=== PATIENT | female | born 1970 | race African-American/Black ===

== ENCOUNTER 2017-03-11 13:06 | Outpatient (CLI) | payer OTHER ==
--- NOTE | 2017-03-11 15:41 | Mammography Report ---
Bilateral diagnostic mammogram with CAD and bilateral targeted breast ultrasound. History: Short-term followup study. Comparison is made to previous left mammogram and bilateral breast ultrasound performed on June 11, 2016. Findings: The breast parenchyma is heterogeneously dense, and the overall pattern is unchanged. No evidence of mammographic mass or distortion is seen. No suspicious calcifications are present. Sonographic evaluation of the left breast demonstrates an ovoid shaped well-circumscribed hypoechoic lesion at the 7:00 position, 4 cm from the nipple. This measures 1.1 x 0.5 cm and is smaller compared to the previous study. Also the internal sonographic features are more uniformly hypoechoic. There is no acoustic shadowing or other suspicious findings. Examination of the right breast demonstrates 3 small cysts in the upper-inner quadrant the largest of which measures 5 mm in diameter. No solid lesions are identified. Impression: Since the previous study, the sonographic lesion at 7:00 in the left breast has decreased in size and demonstrates multiple benign features. There is no mammographic correlate. Multiple right small cysts are noted again without mammographic correlation. BI-RADS code: 3. Recommendation: A 6 month followup left breast ultrasound is recommended.
== END 2017-03-11 13:07 | disposition home or self-care (01) ==
LOC: MAMMO 13:06
PROVIDERS: ATTEND Family Medicine
DX: N60.01 Solitary cyst of right breast (principal); N64.89 Other specified disorders of breast
CPT/HCPCS: 76642; G0204; 77066